=== PATIENT | female | born 1945 | race Caucasian/White ===

== ENCOUNTER 2017-05-02 09:09 | Day surgery (SDC) ==
[2017-05-02] MEDS ORDERED: DIPRIVAN 20 ML VIAL IVP ONE (11:57)
[2017-05-02] MEDS ORDERED: VERSED ONE (11:57)
[2017-05-02 13:14] VITALS: BP 158/81; TEMP 98.2
--- NOTE | 2017-05-02 15:44 | OP ---
PROCEDURE: COLONOSCOPY TO THE CECUM WITH SNARE POLYPECTOMY. ENDOSCOPIST: Amanda QUINN M.D. INDICATION: HISTORY OF POLYPS INSTRUMENT: [id number]. MEDICATION: PER ANESTHESIA. PROCEDURE: The patient was positioned for colonoscopy. The digital rectal exam was negative. The colonoscope was inserted through the anus and advanced to the cecum. The cecum was identified using the ileocecal valve and the appendiceal orifice as landmarks. The scope was slowly withdrawn through an adequately prepped colon. Some mild mucosal trauma noted in the right colon from insertion. Some polyp in the ascending colon removed using snare cautery. Dionna ink identified on 25cm. No residual polyp noted. Diverticulosis of the left colon. Retroflex exam was otherwise normal. Withdraw time 9 minutes and 37 seconds. PLAN: 1. Suggest repeat colonoscopy in 5 years. CC: Dr. Micheline SHIN
== END 2017-05-02 13:28 | disposition home or self-care (01) ==
LOC: SURG 09:09
PROVIDERS: ATTEND Internal Medicine Gastroenterology
DX: Z09 Encounter for follow-up examination after completed treatment for conditions other than malignant neoplasm (principal); Z86.010 Personal history of colon polyps; D12.2 Benign neoplasm of ascending colon; K57.30 Diverticulosis of large intestine without perforation or abscess without bleeding